=== PATIENT | male | born 1995 | race American Indian/Alaskan Native ===

== ENCOUNTER 2020-09-21 21:53 | Emergency (ER) | payer SELFPAY ==
[2020-09-21 22:31] VITALS: BP 102/72
[2020-09-21] MEDS ORDERED: ONDANSETRON 4 MG ODT TAB PO ONE (23:30)
[2020-09-21] MEDS ORDERED: predniSONE 20 MG TAB PO ONE (23:30)
[2020-09-21] MEDS ORDERED: IBUPROFEN 600 MG TAB PO ONE (23:30)
[2020-09-21] MEDS ORDERED: traMADol 50 MG TAB PO ONE (23:30)
--- NOTE | 2020-09-21 23:48 | Emergency Department Report ---
ED Extremity Problem HPI - General Chief complaint: Extremity Problem,Nontraumatic Stated complaint: BILATERAL FOOT PAIN Source: family Mode of arrival: Ambulatory Limitations: Language Barrier - History of Present Illness Initial comments: Patient is a 24-year-old male with no past medical history presents to the ED with complaint of acute onset persistent nontraumatic bilateral heel pain for the last 1 week. Patient states that the symptoms have been persistent and worse in the last 3 days, now radiating to the bilateral Achilles tendon and proximally to the bilateral calf muscles. Patient denies fall, traumatic injury, numbness and tingling or weakness of lower extremities bilaterally, fever, chills, nausea, vomiting, heavy lifting, chest pain, shortness of breath or low back pain. MD Complaint: extremity pain (bilateral heel pain and swelling), extremity swelling (Bilateral heel pain and swelling), joint swelling (bilateral heel pain and swelling) -: Sudden, week(s) (1) Location: bilateral lower extremity (heel) History of Same: No -: Yes arthralgia (Bilateral heel pain and swelling), No fever, No associated dyspnea, No associated chest pain Severity scale (0 -10): 8 Quality: aching, sharp Consistency: constant Improves with: nothing Worsens with: weight bearing, walking, exertion, palpation Associated Symptoms: denies other symptoms, arthralgias (heel pain and swelling). denies: chest pain, shortness of breath, fever, myalgias, rash, other - Related Data Previous Rx's Medication Instructions Recorded Last Taken Type Naproxen 500 mg PO Q12H PRN #30 tablet 09/21/20 Unknown Rx Prednisone [predniSONE 10 mg 10 mg PO .TAPER #21 tab.ds.pk 09/21/20 Unknown Rx (6-Day Pack, 21 Tabs)] tiZANidine [Zanaflex 4mg TAB] 4 mg PO Q8H PRN #21 tablet 09/21/20 Unknown Rx ED Review of Systems ROS: Stated complaint: BILATERAL FOOT PAIN Other details as noted in HPI Constitutional: denies: chills, fever Eyes: denies: eye pain, eye discharge, vision change ENT: denies: ear pain, throat pain Respiratory: denies: cough, shortness of breath, wheezing Cardiovascular: denies: chest pain, palpitations Endocrine: no symptoms reported Gastrointestinal: denies: abdominal pain, nausea, diarrhea Genitourinary: denies: urgency, dysuria Musculoskeletal: joint swelling, arthralgia (Bilateral heel pain and swelling). denies: back pain Skin: denies: rash, lesions Neurological: denies: headache, weakness, paresthesias Psychiatric: denies: anxiety, depression Hematological/Lymphatic: denies: easy bleeding, easy bruising ED Past Medical Hx - Past Medical History Previous Medical History?: No - Surgical History Past Surgical History?: No - Medications Home Medications: Home Medications Medication Instructions Recorded Confirmed Last Taken Type Naproxen 500 mg PO Q12H PRN #30 tablet 09/21/20 Unknown Rx Prednisone [predniSONE 10 mg 10 mg PO .TAPER #21 tab.ds.pk 09/21/20 Unknown Rx (6-Day Pack, 21 Tabs)] tiZANidine [Zanaflex 4mg TAB] 4 mg PO Q8H PRN #21 tablet 09/21/20 Unknown Rx ED Physical Exam - General Limitations: Language Barrier General appearance: alert, in no apparent distress - Head Head exam: Present: atraumatic, normocephalic, normal inspection - Eye Eye exam: Present: normal appearance, PERRL, EOMI Pupils: Present: normal accommodation - ENT ENT exam: Present: normal exam, normal orophraynx, mucous membranes moist, TM's normal bilaterally, normal external ear exam - Neck Neck exam: Present: normal inspection, full ROM - Respiratory Respiratory exam: Present: normal lung sounds bilaterally. Absent: respiratory distress, wheezes, chest wall tenderness, accessory muscle use, decreased breath sounds - Cardiovascular Cardiovascular Exam: Present: regular rate, normal rhythm, normal heart sounds. Absent: systolic murmur, diastolic murmur, rubs, gallop - GI/Abdominal GI/Abdominal exam: Present: soft, normal bowel sounds. Absent: tenderness, guarding, rebound, hyperactive bowel sounds, hypoactive bowel sounds, organomegaly - Extremities Exam Extremities exam: Present: normal inspection, full ROM, tenderness (Palpable severe bilateral heel tenderness with mild swelling), normal capillary refill, joint swelling (Bilateral heel tenderness and swelling). Absent: calf tenderness - Back Exam Back exam: Present: normal inspection, full ROM. Absent: tenderness, CVA tenderness (R), CVA tenderness (L), muscle spasm, paraspinal tenderness, vertebral tenderness, rash noted - Neurological Exam Neurological exam: Present: alert, oriented X3, CN II-XII intact, normal gait, reflexes normal - Psychiatric Psychiatric exam: Present: normal affect, normal mood - Skin Skin exam: Present: warm, dry, intact, normal color. Absent: rash ED Course Vital Signs 09/21/20 22:27 Temperature 98.3 F Pulse Rate 87 Respiratory 18 Rate Blood Pressure 102/72 O2 Sat by Pulse 100 Oximetry ED Medical Decision Making - Differential Diagnosis Plantar fasciitis; Achilles tendinitis; muscle strain; Critical care attestation.: If time is entered above; I have spent that time in minutes in the direct care of this critically ill patient, excluding procedure time. ED Disposition Clinical Impression: Achilles tendinitis of both lower extremities, Plantar fasciitis, bilateral, Tendinitis of both feet Disposition: TO HOME OR SELFCARE Is pt being admited?: No Does the pt Need Aspirin: No Condition: Stable Instructions: Tendinitis, [id number], Plantar Fasciitis Rehab-SportsMed, Achilles Tendinitis Rehab-SportsMed Additional Instructions: Estela sntomas se deben a marjorie inflamacin del taln del pie llamada fascitis plantar. Por lo tanto, tome la medicacin con alimentos, gi muchos lquidos y essence un seguimiento con benoit mdico de atencin primaria en 5 a 7 baez para marjorie reevaluacin. Regrese al servicio de urgencias de inmediato si los sntomas empeoran. Prescriptions: Naproxen 500 mg PO Q12H PRN #30 tablet PRN Reason: Pain , Severe (7-10) Prednisone [predniSONE 10 mg (6-Day Pack, 21 Tabs)] 10 mg PO .TAPER #21 tab.ds.pk tiZANidine [Zanaflex 4mg TAB] 4 mg PO Q8H PRN #21 tablet PRN Reason: Muscle Spasm Referrals: [facility]– [place] [Outside] - 3-5 Days [facility] [Provider Group] - 3-5 Days Time of Disposition: 23:49 Print Language: KENYAN
== END 2020-09-22 00:46 | disposition home or self-care (01) ==
LOC: ED 21:53
DX: M77.8 Other enthesopathies, not elsewhere classified (principal); M76.61 Achilles tendinitis, right leg; M76.62 Achilles tendinitis, left leg; M72.2 Plantar fascial fibromatosis; Z79.899 Other long term (current) drug therapy
CPT/HCPCS: 99282; J7512; Q0162